=== PATIENT | male | born 1980 | race African-American/Black ===

== ENCOUNTER 2020-03-10 19:48 | Emergency (ER) | payer SELFPAY ==
[~2020-03-10] VITALS: Ht 182.9 cm; Wt 59.0 kg
[2020-03-10 20:00] VITALS: BP 96/66
--- NOTE | 2020-03-10 20:20 | NUR ---
SEEN AND EXAMINED BY DAMIEN WITH ORDERS AND CARRIED OUT
[2020-03-10] MEDS ORDERED: ACETAMINOPHEN 325 MG TAB PO ONE (20:25)
[2020-03-10] MEDS ORDERED: IBUPROFEN 600 MG TAB PO ONE (20:25)
--- NOTE | 2020-03-10 20:25 | NUR ---
MEDICATED PER [facility] ORDER, TOLERATED WELL.
[2020-03-10 22:30] VITALS: BP 104/70
--- NOTE | 2020-03-10 22:30 | NUR ---
Patient discharged with v/s stable. Written and verbal after care instructions given and explained. Patient alert, oriented and verbalized understanding of instructions. Ambulatory with steady gait. All questions addressed prior to discharge. ID band removed. Patient advised to follow up with PMD. Rx of LIDODERM5 % given. Patient educated on indication of medication including possible reaction and side effects. Opportunity to ask questions provided and answered.
[2020-03-11] MEDS ORDERED: LIDOCAINE 5% 1 EA PATCH TP SCH (09:00)
== END 2020-03-10 22:30 | disposition home or self-care (01) ==
LOC: MED 19:48
DX: S32.018A Other fracture of first lumbar vertebra, initial encounter for closed fracture (principal); W19.XXXA Unspecified fall, initial encounter; Y93.89 Activity, other specified; Y92.89 Other specified places as the place of occurrence of the external cause; Y99.8 Other external cause status
CPT/HCPCS: 72110; 99283